=== PATIENT | female | born 1990 | race Caucasian/White ===

== ENCOUNTER 2018-06-02 12:21 | Emergency (ER) | payer MEDICAID, OTHER ==
[~2018-06-02] VITALS: Ht 172.7 cm; Wt 100.0 kg
[~2018-06-02 12:21] MED LIST: FERR-43 PO
[2018-06-02 16:29] VITALS: BP 138/89
== END 2018-06-02 17:20 | disposition left against medical advice (07) ==
LOC: ER 12:48
DX: Z53.21 Procedure and treatment not carried out due to patient leaving prior to being seen by health care provider (principal)

== ENCOUNTER 2021-05-29 17:51 | Emergency (ER) | payer MEDICAID, OTHER ==
[~2021-05-29] VITALS: Ht 172.7 cm; Wt 89.0 kg
[2021-05-29 18:06] VITALS: BP 136/95
[2021-05-29 19:19] LABS: BASOPHILS % 0.3 % (0.0-2.0); EOSINOPHILS % 0.6 % (0.0-5.0); HEMATOCRIT. 36.2 % (36.0-48.0); HEMOGLOBIN. 12.1 g/dL (12.0-16.0); LYMPHOCYTES % 22.5 % (20.0-50.0); MEAN CORPUSCULAR HEMOGLOBIN 29.2 pg (28.0-32.0); MEAN CORPUSCULAR VOLUME 87.3 fL (81.0-99.0); NEUTROPHILS % 70.6 % (40.0-76.0); PLATELET 281 x1000/uL (130-400); RED BLOOD CELL COUNT 4.15 mill/uL (4.2-5.4); RED CELL DISTRIBUTION WIDTH 12.8 % (11.6-14.6)
[2021-05-29 19:34] LABS: CHLORIDE 106 mEq/L (98-107)
[2021-05-29 19:59] LABS: B-HCG QUANTITATIVE 19538 mIU/mL (<3)
[2021-05-29 23:33] LABS: CLARITY URINE CLOUDY (CLEAR); COLOR URINE ORANGE (YELLOW); KETONES URINE NEGATIVE (NEGATIVE); LEUKOCYTE ESTERASE URINE TRACE (NEGATIVE); NITRITE URINE NEGATIVE (NEGATIVE); OCCULT BLOOD URINE 3+ (NEGATIVE); PROTEIN URINE 1+ (NEGATIVE); SPECIFIC GRAVITY URINE 1.033 (1.005-1.030)
[2021-05-29] MEDS ORDERED: CEPH500C2 MT (23:55)
== END 2021-05-30 00:08 | disposition home or self-care (01) ==
LOC: ER 17:51
DX: O20.0 Threatened abortion (principal); Z3A.14 14 weeks gestation of pregnancy
CPT/HCPCS: 36415; 76801; 80053; 81003; 84702; 85025; 86850; 86900; 99284